=== PATIENT | female | born 1995 | race African-American/Black ===

== ENCOUNTER 2021-08-20 16:21 | Inpatient (IN) | payer OTHER ==
[~2021-08-20] VITALS: Ht 160 cm; Wt 71.6 kg
[2021-08-20] MEDS ORDERED: LORazepam 2 MG TAB PO PRN (17:20)
[2021-08-20 17:27] LABS: HEMATOCRIT 42.4 % (36.0-47.0); HEMOGLOBIN 13.6 g/dl (12.0-15.5); MEAN CORPUSCULAR HEMOGLOBIN 31.3 pg (27.0-33.0); MEAN CORPUSCULAR HGB CONC 32.1 g/dl (32.0-36.5); MEAN CORPUSCULAR VOLUME 97.7 fl (80.0-96.0); PLATELET COUNT, AUTOMATED 291 10^3/uL (150-450); RED BLOOD COUNT 4.34 10^6/uL (4.00-5.40)
[2021-08-20 17:50] LABS: HCG, SERUM QUALITATIVE NEGATIVE (NEGATIVE)
[2021-08-20 17:58] LABS: ACETAMINOPHEN LEVEL < 2.0 UG/ML (10.0-30.0); ALBUMIN 4.2 GM/DL (3.2-5.2); ALT/SGPT 27 U/L (12-78); BILIRUBIN,DIRECT 0.1 MG/DL (0.0-0.2); BILIRUBIN,TOTAL 0.4 MG/DL (0.2-1.0); BLOOD UREA NITROGEN 18 MG/DL (7-18); CALCIUM LEVEL 9.8 MG/DL (8.5-10.1); CARBON DIOXIDE LEVEL 27 MEQ/L (21-32); CHLORIDE LEVEL 106 MEQ/L (98-107); CREATININE FOR GFR 0.98 MG/DL (0.55-1.30); ETHYL ALCOHOL (ETHANOL) < 0.003 % (0.000-0.010); GLOMERULAR FILTRATION RATE > 60.0 (>60); GLUCOSE, FASTING 91 MG/DL (70-100); POTASSIUM SERUM 3.7 MEQ/L (3.5-5.1); SALICYLATE LEVEL < 1.7 MG/DL (5.0-30.0); SODIUM LEVEL 140 MEQ/L (136-145); THYROID STIMULATING HORMONE 0.571 uIU/ML (0.358-3.740)
[2021-08-20 18:13] LABS: AMPHETAMINES LEVEL URINE NEGATIVE (NEGATIVE); BARBITURATES URINE NEGATIVE (NEGATIVE); BENZODIAZEPINES URINE NEGATIVE (NEGATIVE); CANNABINOIDS URINE NEGATIVE (NEGATIVE); COCAINE METABOLITE URINE NEGATIVE (NEGATIVE); METHADONE URINE NEGATIVE (NEGATIVE); OPIATES URINE NEGATIVE (NEGATIVE); PHENCYCLIDINE URINE NEGATIVE (NEGATIVE)
[2021-08-20] MEDS: THIAMINE 100 MG TAB PO SCH (21:00)
[2021-08-20] MEDS ORDERED: IBUP1TAB6 PO (22:30)
[2021-08-20] MEDS ORDERED: PROBCAP14 PO (22:30)
[2021-08-20] MEDS ORDERED: HOME MED LIST COMPLETE! XX SCH (22:30)
[2021-08-21] MEDS ORDERED: MAALOX 30 ML SUSP *UDC PO PRN (01:15)
[2021-08-21] MEDS ORDERED: MOM 30ML SUSPENSION UDC PO PRN (01:15)
[2021-08-21] MEDS ORDERED: ACETAMINOPHEN TAB 650MG DOSE (2X325MG) PO PRN (01:15)
[2021-08-21 02:17] VITALS: BP 127/72
[2021-08-21] MEDS ORDERED: MULTIVITAMINS/MINERALS THERAP 1 TAB PO SCH (09:00)
[2021-08-21] MEDS ORDERED: FOLIC ACID 1 MG TAB PO SCH (09:00)
--- NOTE | 2021-08-21 11:27 | ECGEPIP ---
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
[2021-08-21] MEDS: THIAMINE 100 MG TAB PO SCH (12:12)
[2021-08-21] MEDS: SERTRALINE HCL 50 MG TAB PO SCH (12:12)
[2021-08-21] MEDS: NICOTINE 21MG/24HR 1 EA TRANSDERMAL TD SCH (12:19)
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
[2021-08-21] MEDS: HYDROCORTISONE 1% CREAM 30 GM TOP SCH ×2 (14:08→21:49)
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
[2021-08-21 18:43] VITALS: BP 128/81
[2021-08-22 06:00] VITALS: BP 116/67
[2021-08-22] MEDS ORDERED: INFLUENZA QUADRIVALENT PF VACCINE 0.5ML SYRINGE IM ONE (09:00)
[2021-08-22] MEDS: SERTRALINE HCL 50 MG TAB PO SCH (09:15)
[2021-08-22] MEDS: HYDROCORTISONE 1% CREAM 30 GM TOP SCH ×2 (09:15→21:59)
[2021-08-22] MEDS: NICOTINE 21MG/24HR 1 EA TRANSDERMAL TD SCH (09:16)
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
[2021-08-22 17:50] VITALS: BP 142/90
[2021-08-22 17:51] VITALS: BP 133/97
[2021-08-22] MEDS: traZODone 50 MG TAB PO PRN (22:53)
[2021-08-23 06:49] VITALS: BP 108/57
[2021-08-23] MEDS: HYDROCORTISONE 1% CREAM 30 GM TOP SCH ×2 (08:31→21:35)
[2021-08-23] MEDS: SERTRALINE HCL 50 MG TAB PO SCH (08:31)
[2021-08-23] MEDS: NICOTINE 21MG/24HR 1 EA TRANSDERMAL TD SCH (08:32)
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
[2021-08-23 17:29] VITALS: BP 132/68
[2021-08-23] MEDS: traZODone 50 MG TAB PO PRN (23:05)
[2021-08-24 06:41] VITALS: BP 106/58
[2021-08-24] MEDS: NICOTINE 21MG/24HR 1 EA TRANSDERMAL TD SCH (08:16)
[2021-08-24] MEDS: SERTRALINE HCL 50 MG TAB PO SCH (08:16)
[2021-08-24] MEDS: hydrOXYzine 25 MG TAB PO PRN (08:17)
[2021-08-24] MEDS: HYDROCORTISONE 1% CREAM 30 GM TOP SCH ×2 (08:18→20:52)
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
[2021-08-24 17:53] VITALS: BP 132/72
[2021-08-24] MEDS: traZODone 50 MG TAB PO PRN (22:25)
[2021-08-25 06:30] VITALS: BP 100/57
[2021-08-25] MEDS: NICOTINE 21MG/24HR 1 EA TRANSDERMAL TD SCH (08:22)
[2021-08-25] MEDS: SERTRALINE HCL 50 MG TAB PO SCH (08:22)
[2021-08-25] MEDS: HYDROCORTISONE 1% CREAM 30 GM TOP SCH ×2 (08:23→20:32)
[2021-08-25 19:07] VITALS: BP 124/62
[2021-08-25] MEDS: hydrOXYzine 25 MG TAB PO PRN (20:32)
[2021-08-25] MEDS: traZODone 50 MG TAB PO PRN (23:11)
[2021-08-26 06:42] VITALS: BP 127/69
[2021-08-26] MEDS: HYDROCORTISONE 1% CREAM 30 GM TOP SCH ×2 (08:34→20:38)
[2021-08-26] MEDS: SERTRALINE HCL 50 MG TAB PO SCH (08:35)
[2021-08-26] MEDS: NICOTINE 21MG/24HR 1 EA TRANSDERMAL TD SCH (08:36)
[2021-08-26] MEDS: hydrOXYzine 25 MG TAB PO PRN ×2 (15:25→21:37)
[2021-08-26 18:49] VITALS: BP 118/82
[2021-08-26] MEDS: traZODone 50 MG TAB PO PRN (23:31)
[2021-08-27 06:35] VITALS: BP 125/67
[2021-08-27] MEDS ORDERED: HYDR-3363 PO (08:18)
[2021-08-27] MEDS ORDERED: SERT50TA29 PO (08:18)
[2021-08-27] MEDS ORDERED: TRAZ-252 PO (08:18)
[2021-08-27] MEDS ORDERED: NICO21PAT TD (08:18)
[2021-08-27] MEDS: HYDROCORTISONE 1% CREAM 30 GM TOP SCH (09:00)
[2021-08-27] MEDS: NICOTINE 21MG/24HR 1 EA TRANSDERMAL TD SCH (09:20)
[2021-08-27] MEDS: SERTRALINE HCL 50 MG TAB PO SCH (09:20)
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
--- NOTE | 2021-08-28 10:02 | MHIPN ---
[facility] PROGRESS NOTE DATE: 08/25/2021 This is a video assessment, she is in the inpatient psychiatry unit, I am at home, she is seen in the presence of staff. We are doing this because of the pandemic. CHIEF COMPLAINT: Says feels better. SUBJECTIVE: Seen for followup, indicates feels better, and that her sleep has improved, says generally does not talk much about her feelings, and suggests that she does not do that also because she is in the . Appetite is okay. MENTAL STATUS EXAMINATION: Neat, cooperative, no agitation, no psychomotor retardation, coherent, affect fairly broad, mildly anxious at times, affect shows fair reactivity. Denies any thoughts of harming herself or anyone else, no evidence of any psychosis. Cognition is grossly intact. Judgment and insight, though compromised, possibly improved. ASSESSMENT: Major depressive disorder, single episode. Unspecified trauma and stressor related disorder. Seemingly doing better, but possibly minimizing her difficulties, and also somewhat avoidant in talking about her emotions. PLAN: Continue current care, and observations, encourage participation in activities in the unit. Further recommendations will be made depending on the clinical picture.
== END 2021-08-27 11:24 | disposition home or self-care (01) | DRG 885 ==
LOC: M ED 16:21 → M PSY 08-21 01:18
PROVIDERS: ADMIT Psychiatry & Neurology Psychiatry; ATTEND Psychiatry & Neurology Psychiatry
DX: F32.1 Major depressive disorder, single episode, moderate (principal); F43.10 Post-traumatic stress disorder, unspecified; Z91.410 Personal history of adult physical and sexual abuse; Z79.899 Other long term (current) drug therapy; Z88.0 Allergy status to penicillin; F17.200 Nicotine dependence, unspecified, uncomplicated; L40.8 Other psoriasis

== ENCOUNTER 2021-11-30 20:34 | Emergency (ER) | payer OTHER ==
[~2021-11-30] VITALS: Ht 160 cm; Wt 76.2 kg
[~2021-11-30 20:34] MED LIST: HYDR-3363 PO; IBUP1TAB6 PO; NICO21PAT TD; PROBCAP14 PO; SERT50TA29 PO; TRAZ-252 PO
[2021-11-30 20:35] VITALS: BP 121/74
[2021-11-30 22:07] LABS: BILIRUBIN, URINE MANUAL NEGATIVE (NEGATIVE); GLUCOSE, URINE (UA) MANUAL NEGATIVE (NEGATIVE); KETONE, URINE MANUAL NEGATIVE (NEGATIVE); UROBILINOGEN, URINE MANUAL NORMAL (NORMAL)
[2021-11-30 22:25] LABS: HYALINE CAST, URINE NONE SEEN /lpf (0-1); MUCUS, URINE MOD AMOUNT (NEGATIVE); SQUAMOUS EPITHELIAL CELL URINE SMALL AMOUNT /hpf (SMALL AMT)
[2021-11-30 22:26] LABS: BACTERIA, URINE NONE SEEN
[2021-11-30 22:34] LABS: BASO % 0.1 % (0.0-1.0); EOS # 0.1 10^3/uL (0.0-0.5); HEMATOCRIT 37.9 % (36.0-47.0); HEMOGLOBIN 12.2 g/dl (12.0-15.5); LYMPH # 1.9 10^3/uL (1.5-5.0); LYMPH % 27.6 % (24.0-44.0); MEAN CORPUSCULAR HEMOGLOBIN 31.8 pg (27.0-33.0); MEAN CORPUSCULAR HGB CONC 32.2 g/dl (32.0-36.5); MEAN CORPUSCULAR VOLUME 98.7 fl (80.0-96.0); MONO # 0.4 10^3/uL (0.0-0.8); MONO % 5.7 % (2.0-8.0); NEUTROPHILS # 4.4 10^3/uL (1.5-8.5); NEUTROPHILS % 64.5 % (36.0-66.0); PLATELET COUNT, AUTOMATED 266 10^3/uL (150-450); RED BLOOD COUNT 3.84 10^6/uL (4.00-5.40); WHITE BLOOD COUNT 6.9 10^3/uL (4.0-10.0)
[2021-11-30 22:58] LABS: HCG, SERUM QUALITATIVE NEGATIVE (NEGATIVE)
[2021-11-30 23:02] LABS: ALBUMIN 3.6 GM/DL (3.2-5.2); ALT/SGPT 23 U/L (12-78); BILIRUBIN,TOTAL 0.2 MG/DL (0.2-1.0); BLOOD UREA NITROGEN 21 MG/DL (7-18); CALCIUM LEVEL 9.4 MG/DL (8.5-10.1); CARBON DIOXIDE LEVEL 27 MEQ/L (21-32); CHLORIDE LEVEL 110 MEQ/L (98-107); CREATININE FOR GFR 0.98 MG/DL (0.55-1.30); GLOMERULAR FILTRATION RATE > 60.0 (>60); GLUCOSE, FASTING 94 MG/DL (70-100); POTASSIUM SERUM 4.3 MEQ/L (3.5-5.1); SODIUM LEVEL 141 MEQ/L (136-145); TOTAL PROTEIN 6.9 GM/DL (6.4-8.2)
[2021-11-30] MEDS ORDERED: ISOVUE-370 76% 100ML VIAL As Ordered ONE (23:25)
[2021-11-30 23:38] LABS: GC DNA AMPLIFICATION NEGATIVE (NEGATIVE)
[2021-12-01] MEDS ORDERED: MIRA3350 PO (00:37)
== END 2021-12-01 00:44 | disposition home or self-care (01) ==
LOC: M ED 20:34
DX: K59.00 Constipation, unspecified (principal); E28.2 Polycystic ovarian syndrome; Z88.0 Allergy status to penicillin; Z87.42 Personal history of other diseases of the female genital tract
CPT/HCPCS: 36415; 74177; 76830; 76856; 80053; 81000; 81015; 81025; 84703; 85025; 87808; 87810; 87850; 93976; 99284; Q9967